=== PATIENT | female | born 1980 | race Asian ===

== ENCOUNTER → 2017-06-07 | Outpatient (CLI) | payer OTHER ==
[~2017-06-07] MED LIST: OMEG10007 PO; PRENTAB26 PO
== END | disposition home or self-care (01) ==
LOC: C.LABSPEC 18:05
PROVIDERS: ATTEND Obstetrics & Gynecology
DX: Z34.81 Encounter for supervision of other normal pregnancy, first trimester (principal)

== ENCOUNTER → 2017-06-13 | Outpatient (CLI) | payer OTHER ==
[2017-06-13 16:40] LABS: BASO % 0.2 %; BASO ABS # 0.02 K/uL (0-0.2); EOS ABS # 0.19 K/uL (0-0.5); HEMATOCRIT 39.1 % (37-47); HEMOGLOBIN 13.6 g/dL (12.0-16.0); IG# 0.02 K/uL (0.00-0.02); LYMPH % 24.2 %; MEAN CELL VOLUME 88.1 fL (80-100); MEAN CORPUSCULAR HEMOGLOBIN 30.6 pg (25-34); MEAN CORPUSCULAR HGB CONC 34.8 g/dl (32-36); MEAN PLATELET VOLUME 12.1 fL (7.4-10.4); MONO % 6.7 %; MONO ABS # 0.64 K/uL (0.11-0.59); NEUT % 66.7 %; NEUT ABS # 6.34 K/uL (1.4-6.5); PLATELET COUNT 205 K/uL (130-400); RED CELL DISTRIBUTION WIDTH CV 13.1 % (11.5-14.5); RED CELL DISTRIBUTION WIDTH SD 42.4 fL (36.4-46.3); WHITE BLOOD COUNT 9.51 K/uL (4.8-10.8)
== END | disposition home or self-care (01) ==
LOC: C.LAB1850 15:11
PROVIDERS: ATTEND Obstetrics & Gynecology
DX: Z34.81 Encounter for supervision of other normal pregnancy, first trimester (principal)

== ENCOUNTER → 2017-06-21 | Outpatient (CLI) | payer OTHER | END | disposition home or self-care (01) | LOC: C.LAB1850 15:38 | PROVIDERS: ATTEND Obstetrics & Gynecology | DX: O02.0 Blighted ovum and nonhydatidiform mole (principal) ==

== ENCOUNTER 2017-07-03 11:12 | Day surgery (SDC) | payer OTHER ==
[~2017-07-03] VITALS: Ht 160 cm; Wt 53.0 kg
[~2017-07-03 11:12] MED LIST changes: +DOXYCYCLINE HYCLATE 100 MG CAP PO SCH; +DOXYCYCLINE HYCLATE 100 MG in DEXTROSE 5% 100ML IV SCH; +LACTATED RINGER'S 1000ML 1,000 ML IV SCH
[2017-07-03 11:57] VITALS: BP 115/66; PULSE 101; TEMP 37; O2SAT 98; Ht 160 cm; Wt 53.0 kg
[2017-07-03] MEDS ORDERED: FENTANYL CITRATE INJ 50 MCG/1 ML 2 ML VIAL ONE (12:27)
[2017-07-03] MEDS ORDERED: MIDAZOLAM HCL 1 MG/ML 2ML VIAL ONE (12:27)
[2017-07-03] MEDS ORDERED: ATROPINE SULFATE 0.1 MG/ML 5ML SYR IV PRN (12:30)
[2017-07-03] MEDS ORDERED: EpHEDrine SULFATE INJ 50 MG/ML AMP IV PRN (12:30)
[2017-07-03] MEDS ORDERED: FENTANYL CITRATE INJ 50 MCG/1 ML 2 ML VIAL IV PRN (12:30)
[2017-07-03] MEDS ORDERED: HYDROmorphone INJ 0.5 MG/0.5 ML SYR IV PRN (12:30)
[2017-07-03] MEDS ORDERED: ONDANSETRON INJ 2 MG/ML 2 ML VIAL IV PRN ×2 (12:30→13:00)
[2017-07-03] MEDS ORDERED: PROMETHAZINE HCL INJ 12.5 MG in SODIUM CHLORIDE 0.9% 50ML 50 ML IV PRN (12:30)
[2017-07-03] MEDS ORDERED: SODIUM CHLORIDE 0.9% 1000ML 1,000 ML IV SCH (12:53)
--- NOTE | 2017-07-03 12:53 | History & Physical Bridge Note ---
H&P Re-Evaluation Bridge Note: I have examined the patient, reviewed the History & Physical and in the interval since the performance of the History & Physical I have noted the following changes of clinical significance: No changes noted
--- NOTE | 2017-07-03 12:55 | Discharge Instructions ---
Discharge Instructions Date of Service Jul 03, 2017. Visit Reason for Visit: Blighted Ovum Discharge Discharge Diagnosis / Problem: Missed Discharge Goals Goal(s): Specific goals Activity Recommendations Activity Limitations: per Instructions/Follow-up section Anesthesia . Post Anesthesia Instructions: If you have had General Anesthesia or IV Sedation: * Do not drive today. * Resume driving when surgeon permits. * Do not make important decisions or sign legal documents today. * Call surgeon for: 1. Temperature elevations greater than 101 degrees F. 2. Uncontrollable pain. 3. Excessive bleeding. 4. Persistent nausea and vomiting. 5. Medication intolerance (nausea, vomiting or rash). * For nausea and vomiting use only clear liquids such as: tea, soda, bouillon until nausea subsides, then gradually increase diet as tolerated. * If you have any concerns or questions, call your surgeon's office. If physician is unavailable and it is an emergency, call 911 or go to the nearest emergency room. . Instructions / Follow-Up Instructions / Follow-Up ACTIVITY RECOMMENDATIONS: * Avoid tampons, douching, hot tubs, pools, and intercourse until bleeding has stopped. * May shower as usual. * No strenuous activity for 24-48 hours. After 24-48 hours, you may do anything you feel like doing (driving and sports are okay). SPECIAL CARE INSTRUCTIONS: Special Diet: * Mild nausea may occur in the immediate post-operative period. * Take clear liquids such as tea, cola or bouillon until all nausea has subsided; you may then resume your normal diet. Special Care: * Light bleeding and vaginal spotting can last from a few days to 3-4 weeks. Call your doctor if bleeding becomes heavier than the heaviest part of your period. * Check your temperature twice a day for one week. If it goes above 100.4 degrees Fahrenheit (38.0 Celsius), notify your doctor. * Call your doctor's office for an appointment for 6 weeks after your surgery. FOLLOW-UP VISIT: Call your doctor's office for an appointment for 6 weeks after your surgery. Diet Recommendations Recommended Home Diet: resume previous diet Pending Studies Studies pending at discharge: no Medical Emergencies . Who to Call and When: Medical Emergencies: If at any time you feel your situation is an emergency, please call 911 immediately. . Non-Emergent Contact Non-Emergency issues call your: Primary Care Provider . . "Provider Documentation" section prepared by Sulema Scott. . [facility] Monitoring Program Search Results: no issues identified
[2017-07-03] MEDS ORDERED: KETOROLAC TROMETHAMINE 30 MG/ML VIAL IV. PRN (13:00)
[2017-07-03] MEDS ORDERED: OXYCODONE/ACETAMINOPHEN 5-325 TAB PO PRN ×2 (13:00)
[2017-07-03] MEDS ORDERED: PROMETHAZINE HCL INJ 25 MG in SODIUM CHLORIDE 0.9% 50ML 50 ML IV PRN (13:00)
[2017-07-03] MEDS ORDERED: IBUPROFEN 600 MG TAB PO PRN (13:00)
[2017-07-03] MEDS ORDERED: KETOROLAC TROMETHAMINE 30 MG/ML VIAL ONE (13:28)
[2017-07-03] MEDS ORDERED: DEXAMETHASONE SOD INJ 4 MG/ML VIAL ONE (13:28)
[2017-07-03] MEDS ORDERED: PROPOFOL IV EMULSION 10 MG/ML 20 ML VIAL IV ONE (13:28)
[2017-07-03] MEDS ORDERED: LIDOCAINE HCL 2% 2 ML VIAL (20MG/ML) ONE (13:28)
[2017-07-03] MEDS ORDERED: ONDANSETRON INJ 2 MG/ML 2 ML VIAL ONE (13:28)
--- NOTE | 2017-07-03 13:32 | [facility] Post Operative Brief Note ---
Immediate Operative Summary Operative Date Jul 03, 2017. Pre-Operative Diagnosis Blighted ovum Post-Operative Diagnosis Blighted ovum Procedure(s) Performed Dilation and evacuation Surgeon Dr. Sulema Scott MD Aerial Advertiser Surgeon(s) None Estimated Blood Loss 300ml Findings Consistent with Post-Op Diagnosis Specimens A. Products of conception Drains None Anesthesia Type General Complication(s) none Disposition Accompanied Pt To Recover: no Disposition: Recovery Room / PACU
--- NOTE | 2017-07-03 14:15 | Anesthesiology Progress Note ---
Anesthesia Post Op Note Date & Time Jul 03, 2017 at 14:15 Vital Signs Pain Intensity: 0 Vital Signs Past 12 Hours Date Time Temp Pulse Resp B/P (MAP) Pulse Ox O2 Delivery O2 Flow Rate FiO2 07/03/17 14:06 91 10 07/03/17 14:06 93 10 100 07/03/17 14:05 103/69 07/03/17 14:04 95 15 07/03/17 14:04 98 15 100 07/03/17 14:00 104/69 07/03/17 13:59 98 26 99 07/03/17 13:59 99 26 07/03/17 13:55 100/63 07/03/17 13:54 98 15 100 07/03/17 13:54 98 15 07/03/17 13:50 94/64 07/03/17 13:50 88/55 07/03/17 13:49 71 14 99 07/03/17 13:49 72 14 07/03/17 13:45 81/49 07/03/17 13:45 81/46 07/03/17 13:44 70 13 07/03/17 13:44 36.2 70 12 81/49 (54) 100 Oxymask 10 07/03/17 13:44 70 13 100 07/03/17 11:57 37 101 16 115/66 (82) 98 Room Air Notes Mental Status: alert / awake / arousable, participated in evaluation Pt Amnestic to Procedure: Yes Nausea / Vomiting: adequately controlled Pain: adequately controlled Airway Patency, RR, SpO2: stable & adequate BP & HR: stable & adequate Hydration State: stable & adequate Anesthetic Complications: no major complications apparent
[2017-07-03 14:25] VITALS: BP 107/65; PULSE 78; TEMP 36.9; O2SAT 99
--- NOTE | 2017-07-03 14:27 | OPERATIVE REPORT ---
DATE OF OPERATION: 07/03/2017 PREOPERATIVE DIAGNOSES: Blighted ovum and missed . POSTOPERATIVE DIAGNOSIS: Same. PROCEDURE: D&E. SURGEON: Dr. Scott. CORRECTIONAL LIEUTENANT: None. ESTIMATED BLOOD LOSS: 300. FINDINGS: Consistent with postop diagnosis. SPECIMENS: POCs. DRAINS: None. ANESTHESIA: General. COMPLICATIONS: None. DISPOSITION: Stable to the recovery room. DESCRIPTION: Yasmine was placed on the table in the dorsal lithotomy position with candy-cane stirrups, prepped and draped in standard sterile fashion and a hard time-out was taken prior to proceeding. Specula were introduced to the vagina and the anterior lip was grasped with a single-tooth tenaculum. The cervix was serially dilated to allow passage of an 8 mm straight curette, which was then introduced gently to the fundus. Suction hosing was connected and through 3 passes using suction, material consistent with products of conception was retrieved. After these 3 passes, the curette was removed and a gentle sharp curettage was carried out ensuring good cry on all 4 singh of uterus. One final pass was made with the suction curette to retrieve any loose tissue and then all instruments were removed. Some bleeding from one of the tenaculum grasper sites was controlled using 30 seconds of pressure with an Allis clamp. This was then removed and the patient was transferred in stable condition to the recovery room. At the time of the procedures completion, there was no active bleeding from the cervical os and the patient was in stable condition. I attest to the content of the Intraoperative Record and any orders documented therein. Any exception s are noted below.
[2017-07-03 14:55] VITALS: BP 103/65; PULSE 94; TEMP 36.9; O2SAT 99
== END 2017-07-03 15:35 | disposition home or self-care (01) ==
LOC: C.ACU 11:12
PROVIDERS: ATTEND Obstetrics & Gynecology
DX: O02.0 Blighted ovum and nonhydatidiform mole (principal); O02.1 Missed abortion; Z88.0 Allergy status to penicillin; Z82.49 Family history of ischemic heart disease and other diseases of the circulatory system

== ENCOUNTER → 2017-07-07 | Outpatient (CLI) | payer OTHER ==
[~2017-07-07] MED LIST changes: -DOXYCYCLINE HYCLATE 100 MG CAP PO SCH; -DOXYCYCLINE HYCLATE 100 MG in DEXTROSE 5% 100ML IV SCH; -LACTATED RINGER'S 1000ML 1,000 ML IV SCH; -OMEG10007 PO
[2017-07-07 12:14] LABS: BASO % 0.7 %; BASO ABS # 0.03 K/uL (0-0.2); EOS ABS # 0.13 K/uL (0-0.5); HEMATOCRIT 36.8 % (37-47); HEMOGLOBIN 12.3 g/dL (12.0-16.0); IG# 0.01 K/uL (0.00-0.02); LYMPH % 32.2 %; LYMPH ABS # 1.41 K/uL (1.2-3.4); MEAN CELL VOLUME 88.5 fL (80-100); MEAN CORPUSCULAR HEMOGLOBIN 29.6 pg (25-34); MEAN CORPUSCULAR HGB CONC 33.4 g/dl (32-36); MEAN PLATELET VOLUME 11.4 fL (7.4-10.4); MONO % 15.5 %; MONO ABS # 0.68 K/uL (0.11-0.59); NEUT % 48.4 %; NEUT ABS # 2.12 K/uL (1.4-6.5); PLATELET COUNT 195 K/uL (130-400); RED CELL DISTRIBUTION WIDTH SD 41.9 fL (36.4-46.3); WHITE BLOOD COUNT 4.38 K/uL (4.8-10.8)
== END | disposition home or self-care (01) ==
LOC: C.LAB1850 11:06
PROVIDERS: ATTEND Obstetrics & Gynecology
DX: O02.0 Blighted ovum and nonhydatidiform mole (principal)

== ENCOUNTER → 2017-07-14 | Outpatient (CLI) | payer OTHER | LOC: C.LAB1850 13:18 | PROVIDERS: ATTEND Obstetrics & Gynecology | DX: O02.0 Blighted ovum and nonhydatidiform mole (principal) ==

== ENCOUNTER → 2017-07-21 | Outpatient (CLI) | payer OTHER | END | disposition home or self-care (01) | LOC: C.LAB1850 10:39 | PROVIDERS: ATTEND Obstetrics & Gynecology | DX: O02.0 Blighted ovum and nonhydatidiform mole (principal) ==

== ENCOUNTER → 2017-07-28 | Outpatient (CLI) | payer OTHER | END | disposition home or self-care (01) | LOC: C.LAB1850 10:43 | PROVIDERS: ATTEND Obstetrics & Gynecology | DX: O02.0 Blighted ovum and nonhydatidiform mole (principal) ==

== ENCOUNTER → 2017-08-04 | Outpatient (CLI) | payer OTHER | END | disposition home or self-care (01) | LOC: C.LAB1850 10:47 | PROVIDERS: ATTEND Obstetrics & Gynecology | DX: O02.0 Blighted ovum and nonhydatidiform mole (principal) ==

== ENCOUNTER → 2017-08-21 | Outpatient (CLI) | payer OTHER | END | disposition home or self-care (01) | LOC: C.LAB1850 15:47 | PROVIDERS: ATTEND Physician Assistant | DX: R94.6 Abnormal results of thyroid function studies (principal) ==

== ENCOUNTER → 2017-12-18 | Outpatient (CLI) | payer OTHER | END | disposition home or self-care (01) | LOC: C.LAB1850 10:56 | PROVIDERS: ATTEND Obstetrics & Gynecology | DX: O99.280 Endocrine, nutritional and metabolic diseases complicating pregnancy, unspecified trimester (principal); Z3A.00 Weeks of gestation of pregnancy not specified; E05.90 Thyrotoxicosis, unspecified without thyrotoxic crisis or storm; O09.522 Supervision of elderly multigravida, second trimester ==

== ENCOUNTER → 2018-01-16 | Outpatient (CLI) | payer OTHER | END | disposition home or self-care (01) | LOC: C.LAB1850 11:25 | PROVIDERS: ATTEND Internal Medicine Endocrinology, Diabetes & Metabolism | DX: O99.280 Endocrine, nutritional and metabolic diseases complicating pregnancy, unspecified trimester (principal); Z3A.00 Weeks of gestation of pregnancy not specified; E05.90 Thyrotoxicosis, unspecified without thyrotoxic crisis or storm ==

== ENCOUNTER 2018-06-10 00:41 | Inpatient (IN) ==
[2018-06-10] MEDS ORDERED: OXYTOCIN 30 UNITS/500 ML BAG IV PRN ×2 (01:41→12:03)
[2018-06-10] MEDS ORDERED: LACTATED RINGER'S 1,000 ML IV PRN ×2 (01:41→08:17)
--- NOTE | 2018-06-10 01:50 | History & Physical Report ---
Date of Service June 10, 2018 Assessment & Plan (1) Post-dates : (2) Advanced maternal age (AMA) in : (3) H/O section: (4) Desires (vaginal after ) trial: admit, iv, labs. fhts categ 1. will see if develops labor pattern. desires to see if can have but aware of limitations. (5) Spontaneous rupture of membranes: History of Present Illness Chief Complaint: leaking amniotic fluid at about midnight tonight Primary Care Provider: Laura Melendez 37yo at 40+wks ega presents to L&D with above cc. Noted clear fluid leak then that persisted. Came to L&D and gross srom noted. She is candidate with default c/s planned for monday. Few cramps and ctx, not intense. no bleeding. +FM pnc c/b 1. ama 2. prior c/s, desires pnl rh pos, ri, gbs neg obh: SAB x 1, c/s x 1 (got to about 6cm, nr fhts) gynh: nl paps, no stds pmh: neg psh: c/s, D&C, wisdom teeth allg: pcn--> hives meds: pnv sh: no tob/etoh/drugs fh: no karin anom or mr Allergies Allergy/AdvReac Type Severity Reaction Status Date / Time kiwi Allergy Intermediate THROAT/TONGUE Verified 06/10/18 01:07 SWELLING Penicillins Allergy Intermediate HIVES Verified 06/10/18 01:07 Home Medications Home Medications Medication Instructions Recorded Confirmed Type vit-iron fum-folic ac 1 tab PO DAILY 06/10/18 06/10/18 History [ Vitamin] Patient History Social History marital status: Current Living Situation: Spouse and Family Other Information That Helps Us Care for You: No Feels Safe at Home: Yes Safety Concerns: Feels Safe At This Time Smoking Status: Never smoker Second Hand Exposure: No Hx Alcohol Use: No Hx Substance Use: No Beliefs That Will Affect Care: None Preferred Language: Danish Communication Ability: Effective Medical Instructor Required: No Review of Systems per hpi Physical Exam 2 Vital Signs (Past 24 Hours): Last Vital Signs Temp 36.9 C 06/10/18 01:00 Pulse 111 H 06/10/18 01:00 Resp 16 06/10/18 01:00 BP 114/77 06/10/18 01:00 Constitutional: WD/WN, vitals as above Respiratory: normal respiratory effort, lungs clear to auscultation Cardiovascular: Rate/Rhythm: regular rate and regular rhythm Gastrointestinal (Abdomen): soft gravid nt, efw 7-8# Musculoskeletal: no peripheral edema Neurologic: grossly normal Genitourinary: OB Exam Abdomen: + estimated weight (7-8#) Manual OB Exam: + cervical dilation 2 cm, + cervical effacement (75%), + station -2 and + amniotic fluid (grossly ruptured) clear OB Exam Monitor Tracing: + external FHT monitor used (130 moderate variability, reactive), + external uterine monitor used (q4), + category I and + normal FHT variability
[2018-06-10] MEDS: LACTATED RINGER'S 1,000 ML IV SCH ×3 (02:06→09:37)
[2018-06-10 02:23] LABS: Hematocrit (blood only) 37.8 % (37-47); Hemoglobin 12.7 g/dL (12.0-16.0); Mean Corpuscular Volume 91.3 fL (80-100); Mean Platelet Volume 11.5 fL (7.4-10.4); Platelet Count 182 K/uL (130-400); RDW Coefficient of Variation 14.5 % (11.5-14.5); RDW Standard Deviation 48.3 fL (36.4-46.3); Red Blood Count 4.14 M/uL (4.2-5.4); White Blood Count 8.29 K/uL (4.8-10.8)
[2018-06-10 02:31] LABS: Mean Corpuscular Hgb Conc 33.6 g/dL (32-36)
[2018-06-10] MEDS ORDERED: fentaNYL citrate 100 MCG/2 ML VIAL ONE (07:09)
[2018-06-10] MEDS ORDERED: ePHEDrine sulfate 50 MG/ML AMP ONE (07:09)
[2018-06-10] MEDS ORDERED: BUPIVACAINE 0.25% 30 ML VIAL ONE (07:09)
[2018-06-10] MEDS ORDERED: fentaNYL 2MCG/ML ROPIV 1.25MG/ML 100 ML BAG EPI ONE (07:10)
--- NOTE | 2018-06-10 07:48 | Obstetrical Progress Note ---
Date of Service June 10, 2018 Assessment & Plan (1) Spontaneous rupture of membranes: (2) Desires (vaginal after ) trial: (3) H/O section: (4) Advanced maternal age (AMA) in : (5) Post-dates : good cx change with her spont labor pattern since rom. need to try position change and see if variable decels persist. anesth called to provide epidural as pt desires. pt aware of need for possible pitocin augmentation if labor stalls but also would depend on status with uterine scar. Subjective feeling pain with ctx, requests epidural Physical Exam 2 Vital Signs (Past 24 Hours): Last Vital Signs Temp 37.0 C 06/10/18 07:01 Pulse 105 H 06/10/18 07:04 Resp 20 06/10/18 06:12 BP 107/56 L 06/10/18 07:04 Constitutional: WD/WN, vitals as above Genitourinary: Manual OB Exam: + cervical dilation 6 cm, + cervical effacement 80%, + station -2 and + amniotic fluid clear OB Exam Monitor Tracing: + external FHT monitor used (135 mod variability, 2 variable decels last 2 ctx), + external uterine monitor used (q3), + normal FHT variability and + variable decelerations
--- NOTE | 2018-06-10 07:53 | Anesthesiology Consultation ---
Date of Service June 10, 2018 Assessment & Plan Chart Review Chart Review: Acceptable Risk for Labor Epidural Consults Requested none ASA ASA2 Proposed Anesthesia Anesthesia Type: Labor Epidural Risk / Benefits Reviewed With: PT / POA / Parent / Guardian, Accepts Plan and Informed Consent Obtained History Height/Weight Height: 5 ft 3 in Weight: 67.132 kg Allergies Allergy/AdvReac Type Severity Reaction Status Date / Time kiwi Allergy Intermediate THROAT/TONGUE Verified 06/10/18 01:07 SWELLING Penicillins Allergy Intermediate HIVES Verified 06/10/18 01:07 Medications Home Medications Medication Instructions Recorded Confirmed Last Taken vit-iron fum-folic ac 1 tab PO DAILY 06/10/18 06/10/18 06/09/18 12:00 [ Vitamin] Active Medications Generic Name Dose Route Start Last Admin Trade Name Freq PRN Reason Stop Dose Admin Lactated Ringer's 1,000 mls @ 125 mls/hr 06/10/18 01:45 06/10/18 07:25 Lr IV 06/12/18 01:44 999 mls/hr .Q8H ERIS Administration Past Medical History Medical History Hypothyroidism mild, being monitored, no medication. Personal history of cardiac murmur PT STATES A MURMUR WAS NOTICED DURING PREVIOUS . PT ASYMPTOMATIC, PT WAS EVALUATED/CLEARED. NO FURTHER TESTING WAS DONE. Past Surgical History Surgical History History of section Done for failure to progress. History of dilatation and curettage History of wisdom tooth extraction Past Anesthesia History No Hx of Anesthesia Complications History of PONV No Motion Sickness Screening History of Motion Sickness: No Social History Smoking Status: Never smoker Hx Alcohol Use: No Hx Substance Use: No substance use type: does not use Exercise / Class Metabolic Activity II 4-5 Yardwork/Stairs/Walk up hill Physical Exam Vital Signs Last Vital Signs Temp 98.6 F 06/10/18 07:01 Pulse 105 H 06/10/18 07:04 Resp 20 06/10/18 06:12 BP 107/56 L 06/10/18 07:04 ENMT Mouth: no dentition abnormality Thyromental Distance: > or= 3.5 Finger Breadths Mallampati Class: II Respiratory normal respiratory effort Auscultation: lungs clear to auscultation bilaterally Cardiovascular Rate/Rhythm: regular rate and regular rhythm Testing Laboratory Results 06/10/18 02:01 Blood Type A Positive 06/10/18 02:01 Antibody Screen NEGATIVE 06/10/18 02:01
[2018-06-10] MEDS ORDERED: NALOXONE HCL 1 MG in SODIUM CHLORIDE 0.9% 1000ML 1,000 ML IV PRN (08:17)
[2018-06-10] MEDS ORDERED: fentaNYL 2MCG/ML ROPIV 1.25MG/ML 100 ML BAG EPI PRN (08:17)
[2018-06-10] MEDS ORDERED: ePHEDrine sulfate 50 MG/ML AMP IV PRN (08:17)
[2018-06-10] MEDS ORDERED: DiphenhydrAMINE HCL 50 MG/ML VIAL IV PRN (08:17)
[2018-06-10] MEDS ORDERED: ONDANSETRON INJ 2 MG/ML 2 ML VIAL IV PRN (08:17)
[2018-06-10] MEDS ORDERED: NALOXONE HCL 0.4 MG/1 ML VIAL/CARP IV PRN (08:17)
[2018-06-10] MEDS ORDERED: NALBUPHINE HCL INJ 10 MG/ML AMP IV PRN (08:17)
--- NOTE | 2018-06-10 09:32 | Obstetrical Progress Note ---
Date of Service June 10, 2018 Assessment & Plan (1) Spontaneous rupture of membranes: (2) Desires (vaginal after ) trial: (3) H/O section: (4) Post-dates : (5) Advanced maternal age (AMA) in : good cx change. begin 2nd stage soon, variables noted, will try position change. Subjective comfortable with epidural, feels some rectal pressure Physical Exam 2 Vital Signs (Past 24 Hours): Last Vital Signs Temp 37.0 C 06/10/18 07:01 Pulse 122 H 06/10/18 09:25 Resp 20 06/10/18 06:12 BP 116/67 06/10/18 09:21 Pulse Ox 98 06/10/18 09:25 Constitutional: WD/WN, vitals as above Genitourinary: Manual OB Exam: + cervical dilation (rim), + cervical effacement 100% and + station 0 OB Exam Monitor Tracing: + external FHT monitor used (135 mod variability, variable decels), + external uterine monitor used (q2-3), + category II and + normal FHT variability
[2018-06-10] MEDS ORDERED: DIPHTHERIA/TETANUS/PERTUSSIS 0.5 ML SYR/VIAL IM ONE (12:03)
[2018-06-10] MEDS ORDERED: ACETAMINOPHEN 325 MG TAB PO PRN (12:03)
[2018-06-10] MEDS ORDERED: HYDROCORTISONE ACETATE 25 MG SUPP PR PRN (12:03)
[2018-06-10] MEDS ORDERED: BENZOCAINE 20% AER SPR 82.5 GM CAN EXT PRN (12:03)
[2018-06-10] MEDS ORDERED: OXYCODONE/ACETAMINOPHEN 5mg/325mg TAB PO PRN (12:03)
[2018-06-10] MEDS ORDERED: SUPERCREAM 0.870% 15 GM JAR EXT PRN (12:03)
[2018-06-10 12:04] LABS: CO2 Cord Arterial Blood 62 mmHg (39.1-73.5); HCO3 Cord Arterial Blood 24 mmol/L (19.7-28.5); pH Cord Arterial Blood 7.21 (7.1-7.38)
[2018-06-10 12:09] LABS: Base Excess Cord Venous Blood -4.4 mEq/L (-7.7-1.9); Cord Venous Blood HCO3 24 mmol/L (18.4-26.8); Cord Venous Blood PCO2 56 mmHg (30.4-57.2); Cord Venous Blood PO2 17 mmHg (14.1-43.3); Cord Venous Blood pH 7.25 (7.20-7.44)
[2018-06-10 12:13] LABS: O2 Saturation Cord Venous Bld < 60.0 % (<68)
[2018-06-10] MEDS ORDERED: OXYTOCIN 20 UNITS in LACTATED RINGER'S 1,000 ML IV SCH (12:30)
--- NOTE | 2018-06-10 12:41 | Delivery Summary ---
DATE OF OPERATION: 06/10/2018 The patient dilated to complete and began pushing. She brought the cephalic to +2 station. There were deep variable decels. She has a prior history of a , attempting . Counseling was given regarding vacuum assistance versus direct . Patient was pushing effectively. After discussion of risks, benefits, and alternatives, she elected attempt at vacuum assistance. The Kiwi vacuum was applied to the cephalic. Over 1 contraction with 2 pulls and 1 popoff, the cephalic was delivered. A loose nuchal cord was noted and delivered through. The was vigorous and crying at . The cord was clamped at 30 seconds of life and infant to maternal abdomen where the cord was then doubly clamped and cut. Cord blood and cord gases were obtained. The placenta was delivered spontaneously and intact 3-vessel cord. Hemostasis achieved with dilute Pitocin and uterine massage. Laceration was complex. The vaginal portion of the laceration was in a W shape. The apices x3 were secured; however, the tissue was very difficult to pull together. There was a partial third degree laceration, and the capsule of this anal sphincter was reapproximated using interrupted sutures of 2-0 Vicryl. The perineal body was built up using interrupted sutures of 3-0 Vicryl. The perineum was then reapproximated in a subcuticular fashion using 3-0 Vicryl. There was persistence of vaginal bleeding at the posterior hymenal ring vaginal tissue portion which required multiple [id number] sutures of 2-0 and 3-0 Vicryl, and hemostasis became adequate. The cervix and sulci had been visualized and were intact. The bladder had already been drained prior to the attempted vacuum and no urine had been obtained. At this point, dilute Pitocin was running with an estimated blood loss of 500 mL. Mother and baby were stable in recovery. I attest to the content of the Intraoperative Record and any orders documented therein. Any exceptions are noted below. MTDD
--- NOTE | 2018-06-10 13:20 | Anesthesia Procedure Note ---
Date of Service June 10, 2018 Anesthesia Post Epidural Note Vital Signs Vital Signs: Temp Pulse Resp BP Pulse Ox 06/10/18 13:07 164 H 76/39 L 06/10/18 12:50 157 H 91/54 L 06/10/18 12:35 142 H 86/52 L 06/10/18 12:20 153 H 86/54 L 06/10/18 12:12 146 H 85/52 L 06/10/18 11:50 139 H 96/60 L 06/10/18 11:35 137 H 88/53 L 06/10/18 11:26 126 H 89/42 L 06/10/18 11:23 89 189/116 H 06/10/18 11:18 136 H 100 06/10/18 11:13 138 H 100 06/10/18 11:08 129 H 100 06/10/18 10:55 140 H 96 06/10/18 10:52 141 H 121/58 L 06/10/18 10:50 142 H 98 06/10/18 10:45 148 H 100 06/10/18 10:40 146 H 100 06/10/18 10:36 133 H 112/60 06/10/18 10:35 135 H 99 06/10/18 10:30 132 H 98 06/10/18 10:25 134 H 97 06/10/18 10:20 137 H 115/61 98 06/10/18 10:15 129 H 98 06/10/18 10:10 128 H 98 06/10/18 10:05 129 H 99/51 L 98 06/10/18 10:00 132 H 98 06/10/18 09:55 141 H 98 06/10/18 09:52 121 H 131/69 06/10/18 09:50 126 H 98 06/10/18 09:45 112 H 97 06/10/18 09:40 112 H 98 06/10/18 09:36 117 H 135/63 06/10/18 09:35 112 H 97 06/10/18 09:30 117 H 98 06/10/18 09:25 122 H 98 06/10/18 09:21 118 H 116/67 06/10/18 09:20 121 H 99 06/10/18 09:15 118 H 99 06/10/18 09:14 98.4 F 20 06/10/18 09:10 117 H 98 01/13/19 09:05 120 H 116/60 98 06/10/18 09:00 113 H 100 06/10/18 08:55 113 H 98 06/10/18 08:50 106 H 107/55 L 99 06/10/18 08:45 116 H 98 06/10/18 08:44 117 H 105/62 06/10/18 08:40 110 H 97 06/10/18 08:39 122 H 109/62 06/10/18 08:35 113 H 98 06/10/18 08:34 117 H 98/53 L 06/10/18 08:30 111 H 98 06/10/18 08:29 112 H 105/56 L 06/10/18 08:25 107 H 99 06/10/18 08:23 109 H 109/59 L 06/10/18 08:21 109 H 107/57 L 06/10/18 08:20 110 H 100 06/10/18 08:19 110 H 109/58 L 06/10/18 08:17 105 H 108/56 L 06/10/18 08:15 105 H 106/59 L 100 06/10/18 08:13 104 H 91/53 L 06/10/18 08:11 98 H 109/57 L 06/10/18 08:10 105 H 99 06/10/18 08:09 100 H 103/51 L 06/10/18 08:07 104 H 120/58 L 06/10/18 08:05 104 H 116/69 97 06/10/18 08:03 107 H 119/69 06/10/18 08:01 109 H 124/72 06/10/18 08:00 106 H 98 06/10/18 07:55 110 H 99 06/10/18 07:50 114 H 99 06/10/18 07:04 105 H 107/56 L 06/10/18 07:01 98.6 F 06/10/18 06:12 98.6 F 105 H 20 108/67 06/10/18 04:55 98.6 F 113 H 18 106/66 06/10/18 03:04 98.2 F 101 H 16 106/62 06/10/18 01:00 98.4 F 111 H 16 114/77 Notes Mental Status: alert / awake / arousable and participated in evaluation Patient Amnestic to Procedure: Yes Nausea / Vomiting: adequately controlled Pain: adequately controlled Airway Patency, RR, SpO2: stable & adequate BP & HR: stable & adequate Hydration State: stable & adequate Neuraxial Anesthesia: was administered and sensory block is resolving Anesthetic Complications: no major complications apparent and Pt Satisfied with anesthetic care Epidural: Removed without complications and With tip intact
--- NOTE | 2018-06-10 13:51 | Obstetrical Progress Note ---
Date of Service June 10, 2018 Assessment & Plan (1) , delivered: BP now more her baseline as is pulse. H/H drawn. Discussed possible causes. No evid of intraabdominal bleeding, no evid of active perineal laceration bleeding and uterus firm. will follow. Subjective called by nursing due to dec bp and increased hr and pt felt strange. pt notes feels better now. per nursing bleeding was stable, fundal height was at u and firm. she is lying flat and feels much better. no abdominal pain. she ate and does not have n/v. Physical Exam 2 Vital Signs (Past 24 Hours): Last Vital Signs Temp 36.9 C 06/10/18 09:14 Pulse 126 H 06/10/18 13:47 Resp 20 06/10/18 09:14 BP 87/54 L 06/10/18 13:44 Pulse Ox 97 06/10/18 13:47 Constitutional: WD/WN, vitals as above Gastrointestinal (Abdomen): Percussion/Palpation: abdomen soft ff at u, non tender. no rebound or guarding. Genitourinary: ff at u, perineum with nl bleeding. no flow of blood.
[2018-06-10 14:04] LABS: Hemoglobin 8.6 g/dL (12.0-16.0)
[2018-06-10] MEDS: DOCUSATE SODIUM 100 MG CAP PO SCH (20:48)
--- NOTE | 2018-06-10 21:48 | Obstetrical Progress Note ---
Date of Service June 10, 2018 Assessment & Plan (1) , delivered: (2) Syncope: called by nursing that pt passed out in bathroom again. voiding well. no signs of significant active bleeding. blood loss at time of delivery likely underestimated given delta of hgb from earlier today when h/h was checked. may require blood transfusions, she was made aware. we had h/h pending for am but given the call will check stat cbc now. apparently pt is sitting in bed without dizziness or lightheadedness. she is eating. Physical Exam 2 Vital Signs (Past 24 Hours): Last Vital Signs Temp 36.9 C 06/10/18 15:00 Pulse 122 H 06/10/18 19:14 Resp 20 06/10/18 15:00 BP 95/51 L 06/10/18 19:14 Pulse Ox 97 06/10/18 15:27
[2018-06-10 22:39] LABS: Hematocrit (blood only) 22.1 % (37-47); Hemoglobin 7.5 g/dL (12.0-16.0); Mean Corpuscular Hgb Conc 33.9 g/dL (32-36); Mean Corpuscular Volume 91.7 fL (80-100); Platelet Count 123 K/uL (130-400); RDW Coefficient of Variation 14.7 % (11.5-14.5); RDW Standard Deviation 49.4 fL (36.4-46.3); Red Blood Count 2.41 M/uL (4.2-5.4); White Blood Count 21.84 K/uL (4.8-10.8)
[2018-06-11 05:51] LABS: Mean Corpuscular Hgb Conc 33.3 g/dL (32-36); Mean Corpuscular Volume 92.1 fL (80-100); Mean Platelet Volume 10.6 fL (7.4-10.4); Platelet Count 116 K/uL (130-400); RDW Coefficient of Variation 14.9 % (11.5-14.5); RDW Standard Deviation 49.8 fL (36.4-46.3); Red Blood Count 2.28 M/uL (4.2-5.4); White Blood Count 19.35 K/uL (4.8-10.8)
--- NOTE | 2018-06-11 07:37 | Obstetrical Progress Note ---
Date of Service June 11, 2018 Assessment & Plan (1) , delivered: (2) Syncope: (3) Severe anemia: stable, routine care. needs to ambulate and if unable to tolerate rec she accept 2u PRBCs. does not seem to be ongoing bleeding. I feel she may not be tolerating her anemia and will likely benefit. pt will consider and try to stand more today to see if symptomatic. Subjective pt tired this am. she feels maybe fatigue with standing and low energy but mostly says she is fatigued from caring for the baby. did void on bedpan through the night. eating, voiding. has not tried to ambulate in room much. Physical Exam 2 Vital Signs (Past 24 Hours): Last Vital Signs Temp 36.9 C 06/11/18 05:45 Pulse 106 H 06/11/18 05:45 Resp 18 06/11/18 05:45 BP 89/60 L 06/11/18 05:45 Pulse Ox 98 06/10/18 21:15 Constitutional: WD/WN, vitals as above Respiratory: normal respiratory effort, lungs clear to auscultation Cardiovascular: Rate/Rhythm: regular rate and regular rhythm Gastrointestinal (Abdomen): soft ff a u, nt Musculoskeletal: nt calves Neurologic: grossly normal
[2018-06-11] MEDS: DOCUSATE SODIUM 100 MG CAP PO SCH ×2 (08:32→19:57)
[2018-06-11] MEDS: PRENATAL VITAMIN 1 TAB PO SCH (08:32)
[2018-06-11] MEDS ORDERED: SODIUM CHLORIDE 0.9% 250 ML IV PRN (10:33)
--- NOTE | 2018-06-11 10:40 | Obstetrical Progress Note ---
Date of Service June 11, 2018 Patient is having more symptoms of lightheadedness with minimum activity accompanied by shortness of breath. Patient had been aware that blood trasnfusion might be necessary with a hemoglobin of 7.0 & symptoms. She is agreeable to transfusion of 2 units of PRBC's. bleeding has been normal. Assessment & Plan (1) Severe anemia: will transfuse PRBC's 2 units & recheck H&H post transfusion. Present on Admission?: No Physical Exam 2 Vital Signs (Past 24 Hours): Last Vital Signs Temp 36.9 C 06/11/18 07:30 Pulse 110 H 06/11/18 07:30 Resp 18 06/11/18 05:45 BP 83/56 L 06/11/18 07:30 Pulse Ox 98 06/10/18 21:15 Constitutional: WD/WN, vitals as above
[2018-06-11 19:50] LABS: Hematocrit (blood only) 27.3 % (37-47); Hemoglobin 9.3 g/dL (12.0-16.0)
[2018-06-12] MEDS: IBUPROFEN 600 MG TAB PO PRN ×3 (06:14→17:21)
--- NOTE | 2018-06-12 07:06 | Obstetrical Progress Note ---
Date of Service <Jamaal Sotomayor MD - Last Filed: 06/12/18 07:06> June 12, 2018 Assessment & Plan <Jamaal Sotomayor MD - Last Filed: 06/12/18 07:06> (1) , delivered: A/P day 2 PPH requiring 2 units of PRBC's yesterday. Vital signs reviewed WNL Hemoglobin 9.3 today up from 7.0 yesterday today GBS - Blood type A+, Rubella Immune Patient doing well clinically today ready to return home Encouraged continued ambulation and Breast feeding Went over d/c instructions with patient answered all questions Subjective <Jamaal Sotomayor MD - Last Filed: 06/12/18 07:06> Ambulation: ambulating normally Voiding: no voiding problems Passing Gas:: Yes Diet Tolerance:: regular diet Lochia:: Moderate Feeding Type:: breast feeding Current Pain Level(1-10): 2 Ms. Mtz is doing well this morning. She has been ambulating okay, but it causes pain in her vaginal area when she does. She had to be transfused 2 units yesterday for PPH but has had only small amounts of bleeding since then. No issues at this time and patient expresses she is ready to go home today. Constitutional: no fever, no chills, no fatigue, no malaise and no weakness Respiratory: no cough and no dyspnea Cardiovascular: no chest pain, no dyspnea, no palpitations and no calf pain Gastrointestinal: no abdominal pain, no nausea and no vomiting Physical Exam <Jamaal Sotomayor MD - Last Filed: 06/12/18 07:06> Vital Signs (Past 24 Hours) Last Vital Signs Temp 37.1 C 06/11/18 23:15 Pulse 99 H 06/11/18 23:15 Resp 16 06/11/18 23:15 BP 101/68 06/11/18 23:15 Pulse Ox 97 06/11/18 23:15 Constitutional well developed, well nourished, cooperative and comfortable; no acute distress Respiratory normal respiratory effort; no respiratory distress, no labored breathing, does not use accessory muscles and no cough Auscultation: lungs clear to auscultation bilaterally Cardiovascular Rate/Rhythm: regular rate and regular rhythm Heart Sounds: normal S1 and normal S2; no click, no gallop, no murmur and no cardiac rub Extremities: no calf tenderness Genitourinary OB Exam Abdomen: + fundal height Fundus: + firm and + relation to umbilicus (2 cm below umbilicus) <Izabel Mead MD, FACOG - Last Filed: 06/12/18 07:58> Co-Signing Physician Notes Resident Physician Supervision Note: I interviewed and examined the patient. Discussed with Dr. Sotomayor and agree with findings and plan as documented in the note. Any exceptions or clarifications are listed here: [None] Documented By: Izabel Mead MD, FACOG
[2018-06-12] MEDS: PRENATAL VITAMIN 1 TAB PO SCH (09:50)
[2018-06-12] MEDS: DOCUSATE SODIUM 100 MG CAP PO SCH (09:50)
--- NOTE | 2018-06-14 20:04 | Discharge Summary ---
ADMISSION DIAGNOSES: 1. Postdates . 2. Advanced maternal age. 3. History of section. 4. Desires vaginal after . 5. Spontaneous rupture of membrane. DISCHARGE DIAGNOSES: 1. Postdates . 2. Advanced maternal age. 3. History of section. 4. Desires vaginal after . 5. Spontaneous rupture of membrane. 6. Severe anemia requiring blood transfusion. PROCEDURES: 1. Vacuum-assisted vaginal after section. 2. Transfusion of 2 units of packed red blood cells. BRIEF HISTORY AND HOSPITAL COURSE: A 37-year-old 3, para 1-0-1-1 at 40+ weeks who presented to labor and delivery on the day of her admission with spontaneous rupture of membranes. She was a candidate and desired attempted . She was admitted and progressed in labor. She dilated to complete and began pushing. She brought the cephalic to +2 station and there were deep variable decels noted. She was counseled about her options and desired to proceed with vacuum assistance. She pushed with 1 contraction to deliver a viable infant and the details are within the delivery summary. Of note, at the time of the delivery, significant bleeding was encountered from the laceration of her vagina and perineum. The uterine tone was good. This ultimately resulted in a post- hemoglobin that drifted to 7 g/dL. She was not tolerating her anemia with multiple episodes of syncope and dizziness and received 2 units of packed red blood cells on her post- day #1. Her post-transfusion hemoglobin came up to 9.3 g/dL. On her day of her discharge, she was tolerating a regular diet, voiding spontaneously without difficulty, ambulating without difficulty, and was stable for discharge to home. Discharge instructions were reviewed with the patient and a plan to follow up in 6 weeks for checkup was also reviewed. DESTINEE
== END 2018-06-12 19:39 | disposition home or self-care (01) | DRG 818 ==
LOC: OPB 00:41 → 4S1 00:44 → 4S2 19:47